=== PATIENT | male | born 1960 | race Two or more races ===

== ENCOUNTER 2020-08-22 11:22 | Outpatient (CLI) | payer MEDICARE ==
[2020-08-22 13:12] LABS: HEMOGLOBIN 13.7 g/dL (13.5-17.5); LYMPHOCYTES # (AUTO) 1.5 /CMM (0.8-4.8); LYMPHOCYTES % (AUTO) 25.9 % (20.0-44.0); NEUTROPHILS # (AUTO) 3.7 /CMM (1.8-8.9); WHITE BLOOD COUNT (AUTO) 5.8 K/uL (4.3-11.0)
[2020-08-22 13:19] LABS: BASOPHILS % (AUTO) 0.5 % (0.0-2.0); EOSINOPHILS % (AUTO) 0.3 % (0.0-6.0); HEMATOCRIT 40 % (39-51); MEAN CORPUSCULAR HGB CONC 34 g/dl (31.0-36.0); MEAN CORPUSCULAR VOLUME 95 fL (80-96); MONOCYTES # (AUTO) 0.5 /CMM (0.1-1.30); MONOCYTES % (AUTO) 9.3 % (2.0-12.0); PLATELET COUNT (AUTO) 344 /CMM (150-450); RED BLOOD CELL COUNT(AUTO) 4.25 MIL/uL (4.5-6.0)
[2020-08-22 13:26] LABS: BILIRUBIN,URINE NEGATIVE (NEGATIVE); COLOR,URINE YELLOW (YELLOW); LEUKOCYTE ESTERASE ,URINE TRACE (NEGATIVE); NITRITE, URINE NEGATIVE (NEGATIVE); PH,URINE 6.5 (5.0-8.0); PROTEIN,URINE NEGATIVE (NEGATIVE); UGLUCOSE NEGATIVE (NEGATIVE); UROBILINOGEN,URINE 0.2 EU/dL (0.2)
[2020-08-22 13:44] LABS: BACTERIA,URINE Many /HPF (None Seen); RBC,URINE 0-2 /HPF (0-2); SQUAMOUS EPITHELIAL CELL,UR Rare /HPF (None Seen)
[2020-08-22 13:58] LABS: URINE TOTAL PROTEIN 7.7 mg/dL (0-11.9)
[2020-08-22 14:20] LABS: C-REACTIVE PROTEIN 0.2 mg/dL (0.0-0.9); FREE T4 (FREE THYROXINE) 1.1 ng/dL (0.76-1.46); PROSTATE SPECIFIC ANTIGEN SCR 1.49 ng/mL (0.00-4.00); THYROID STIMULATING HORMONE 1.933 uIU/mL (0.358-3.74)
[2020-08-22 14:30] LABS: ALBUMIN 4.2 g/dL (3.4-5.0); BILIRUBIN,TOTAL 0.6 mg/dL (0.2-1.0); CALCIUM, SERUM 9.2 mg/dL (8.5-10.1); CREATININE 0.8 mg/dL (0.6-1.3); MAGNESIUM 2.2 mg/dL (1.8-2.4); TOTAL PROTEIN, SERUM 7.8 g/dL (6.4-8.2)
[2020-08-23 11:07] LABS: *ANA ANTI-CENTROMERE B AB <0.2 AI (0.0-0.9); *ANA ANTI-DNA(DS) AB, QN <1 IU/mL (0-9); *ANA ANTI-JO-1 <0.2 AI (0.0-0.9); *ANA ANTICHROMATIN ANTIBODY <0.2 AI (0.0-0.9); *ANA RNP ANTIBODIES 0.2 AI (0.0-0.9); *ANA SJOGREN'S ANTI-SS-A <0.2 AI (0.0-0.9); *ANA SJOGREN'S ANTI-SS-B <0.2 AI (0.0-0.9); *ANAANTI-SCLERODERMA-70 AB <0.2 AI (0.0-0.9); *ANASMITH AB 0.2 AI (0.0-0.9)
== END 2020-08-22 23:59 | disposition home or self-care (01) ==
LOC: MSC 11:22
PROVIDERS: ATTEND Internal Medicine
DX: G89.29 Other chronic pain (principal); M54.16 Radiculopathy, lumbar region; M25.552 Pain in left hip; R32 Unspecified urinary incontinence; F20.9 Schizophrenia, unspecified; I10 Essential (primary) hypertension; Z79.899 Other long term (current) drug therapy
CPT/HCPCS: 36415; 71046; 72170; 73503; 73562; 73590; 80053; 80061; 81001; 82043; 82306; 82570; 82607; 82728; 82746; 83036; 83540; 83735; 84100; 84153; 84155; 84439; 84443; 85025; 85652; 86140; 86225; 86235 ×8; 87086; G0463; 73502

== ENCOUNTER → 2020-09-05 | Outpatient (CLI) | payer MEDICARE | END | disposition home or self-care (01) | LOC: MSC 11:00 | PROVIDERS: ATTEND Internal Medicine | DX: G89.29 Other chronic pain (principal); M54.10 Radiculopathy, site unspecified; M25.552 Pain in left hip; R32 Unspecified urinary incontinence; F20.9 Schizophrenia, unspecified; I10 Essential (primary) hypertension; Z79.899 Other long term (current) drug therapy ==

== ENCOUNTER 2020-09-29 10:45 | Outpatient (CLI) | payer MEDICARE | END 2020-09-29 23:59 | disposition home or self-care (01) | LOC: MSC 10:45 | PROVIDERS: ATTEND Internal Medicine | DX: S93.401A Sprain of unspecified ligament of right ankle, initial encounter (principal); R32 Unspecified urinary incontinence; R05 Cough; G89.29 Other chronic pain; M54.9 Dorsalgia, unspecified; F20.9 Schizophrenia, unspecified; I10 Essential (primary) hypertension ==

== ENCOUNTER 2020-09-29 11:22 | Outpatient (CLI) | payer MEDICARE | END 2020-09-29 23:59 | disposition home or self-care (01) | LOC: WOU 11:22 | PROVIDERS: ATTEND Podiatrist Foot & Ankle Surgery | DX: R60.0 Localized edema (principal); M79.671 Pain in right foot; F17.200 Nicotine dependence, unspecified, uncomplicated | CPT/HCPCS: G0463 ==

== ENCOUNTER 2020-10-04 11:40 | Outpatient (CLI) | payer MEDICARE | END 2020-10-04 23:59 | disposition home or self-care (01) | LOC: RAD 11:40 | PROVIDERS: ATTEND Podiatrist Foot & Ankle Surgery | DX: S92.001A Unspecified fracture of right calcaneus, initial encounter for closed fracture (principal); S93.401A Sprain of unspecified ligament of right ankle, initial encounter; S90.01XA Contusion of right ankle, initial encounter; M20.41 Other hammer toe(s) (acquired), right foot; M77.31 Calcaneal spur, right foot; R60.0 Localized edema; X58.XXXA Exposure to other specified factors, initial encounter; Y93.89 Activity, other specified; Y92.89 Other specified places as the place of occurrence of the external cause; Y99.8 Other external cause status | CPT/HCPCS: 73600-TC; 73630-TC ==

== ENCOUNTER → 2020-10-10 | Outpatient (CLI) | payer MEDICARE | END | disposition home or self-care (01) | LOC: WOU 10:10 | PROVIDERS: ATTEND Podiatrist Foot & Ankle Surgery | DX: S92.014D Nondisplaced fracture of body of right calcaneus, subsequent encounter for fracture with routine healing (principal); X58.XXXD Exposure to other specified factors, subsequent encounter; R60.0 Localized edema; B35.1 Tinea unguium; L60.2 Onychogryphosis; M79.671 Pain in right foot | CPT/HCPCS: G0463 ==

== ENCOUNTER 2020-10-12 09:00 | Outpatient (CLI) | payer MEDICARE | END 2020-10-12 23:59 | disposition home or self-care (01) | LOC: MSC 09:00 | PROVIDERS: ATTEND Internal Medicine | DX: R05 Cough (principal); F17.200 Nicotine dependence, unspecified, uncomplicated; R32 Unspecified urinary incontinence; M79.606 Pain in leg, unspecified; M25.552 Pain in left hip; G89.29 Other chronic pain; M54.10 Radiculopathy, site unspecified; F20.9 Schizophrenia, unspecified; I10 Essential (primary) hypertension; Z79.899 Other long term (current) drug therapy ==

== ENCOUNTER 2020-10-13 12:13 | Outpatient (CLI) | payer MEDICARE, OTHER | END 2020-10-13 23:59 | disposition home or self-care (01) | LOC: RAD 12:13 | PROVIDERS: ATTEND Internal Medicine | DX: M47.27 Other spondylosis with radiculopathy, lumbosacral region (principal); M43.17 Spondylolisthesis, lumbosacral region; M48.07 Spinal stenosis, lumbosacral region; M25.78 Osteophyte, vertebrae | CPT/HCPCS: 72148-TC ==

== ENCOUNTER 2020-10-13 13:06 | Outpatient (CLI) | payer MEDICARE ==
[2020-10-13 14:45] LABS: BILIRUBIN,URINE NEGATIVE (NEGATIVE); COLOR,URINE YELLOW (YELLOW); LEUKOCYTE ESTERASE ,URINE NEGATIVE (NEGATIVE); NITRITE, URINE NEGATIVE (NEGATIVE); PH,URINE 5.5 (5.0-8.0); PROTEIN,URINE NEGATIVE (NEGATIVE); UGLUCOSE NEGATIVE (NEGATIVE); UROBILINOGEN,URINE 0.2 EU/dL (0.2)
== END 2020-10-13 23:59 | disposition home or self-care (01) ==
LOC: LAB 13:06
PROVIDERS: ATTEND Internal Medicine
DX: R32 Unspecified urinary incontinence (principal)
CPT/HCPCS: 36415; 84153-TC; 87086-TC

== ENCOUNTER 2020-10-19 11:00 | Outpatient (CLI) | payer MEDICARE | END 2020-10-19 23:59 | disposition home or self-care (01) | LOC: MSC 11:00 | PROVIDERS: ATTEND Internal Medicine | DX: R05 Cough (principal); F17.200 Nicotine dependence, unspecified, uncomplicated; G89.29 Other chronic pain; M54.10 Radiculopathy, site unspecified; R32 Unspecified urinary incontinence; M25.552 Pain in left hip; F20.9 Schizophrenia, unspecified; I10 Essential (primary) hypertension; Z79.899 Other long term (current) drug therapy ==

== ENCOUNTER 2020-10-24 10:32 | Outpatient (CLI) | payer MEDICARE | END 2020-10-24 23:59 | LOC: MSC 10:32 | PROVIDERS: ATTEND Anesthesiology | DX: M25.551 Pain in right hip (principal); M25.552 Pain in left hip; M79.604 Pain in right leg; R25.2 Cramp and spasm; Z79.891 Long term (current) use of opiate analgesic; Z79.1 Long term (current) use of non-steroidal anti-inflammatories (NSAID) ==

== ENCOUNTER → 2020-11-03 | Outpatient (CLI) | payer MEDICARE, OTHER | END | disposition home or self-care (01) | LOC: RAD 14:41 | PROVIDERS: ATTEND Podiatrist Foot & Ankle Surgery | DX: S92.001D Unspecified fracture of right calcaneus, subsequent encounter for fracture with routine healing (principal); M21.41 Flat foot [pes planus] (acquired), right foot; X58.XXXD Exposure to other specified factors, subsequent encounter | CPT/HCPCS: 73630-TC ==

== ENCOUNTER 2020-11-07 10:10 | Outpatient (CLI) | payer MEDICARE, OTHER | END 2020-11-07 23:59 | disposition home or self-care (01) | LOC: WOU 10:10 | PROVIDERS: ATTEND Podiatrist Foot & Ankle Surgery | DX: S92.014 Nondisplaced fracture of body of right calcaneus (principal); X58.XXXD Exposure to other specified factors, subsequent encounter; R60.0 Localized edema; M79.671 Pain in right foot; B35.1 Tinea unguium; L60.2 Onychogryphosis | CPT/HCPCS: G0463 ==

== ENCOUNTER 2020-12-05 09:50 | Outpatient (CLI) | payer MEDICARE, OTHER | END 2020-12-05 23:59 | disposition home or self-care (01) | LOC: WOU 09:50 | PROVIDERS: ATTEND Podiatrist Foot & Ankle Surgery | DX: S92.014D Nondisplaced fracture of body of right calcaneus, subsequent encounter for fracture with routine healing (principal); X58.XXXD Exposure to other specified factors, subsequent encounter; B35.1 Tinea unguium; L60.2 Onychogryphosis; R60.0 Localized edema; M79.671 Pain in right foot | CPT/HCPCS: 73630; G0463 ==

== ENCOUNTER 2021-01-04 11:06 | Outpatient (CLI) | payer MEDICARE, OTHER | END 2021-01-04 23:59 | disposition home or self-care (01) | LOC: RAD 11:06 | PROVIDERS: ATTEND Podiatrist Foot & Ankle Surgery | DX: S92.001D Unspecified fracture of right calcaneus, subsequent encounter for fracture with routine healing (principal); M21.41 Flat foot [pes planus] (acquired), right foot; X58.XXXD Exposure to other specified factors, subsequent encounter | CPT/HCPCS: 73630-TC ==

== ENCOUNTER 2021-01-10 14:10 | Outpatient (CLI) | payer MEDICARE, OTHER ==
[2021-01-10] MEDS ORDERED: CLOTRIMAZOLE 1% 15 GM TUBE TP ONE (14:36)
== END 2021-01-10 23:59 | disposition home or self-care (01) ==
LOC: WOU 14:10
PROVIDERS: ATTEND Podiatrist Foot & Ankle Surgery
DX: S92.014 Nondisplaced fracture of body of right calcaneus (principal); X58.XXXD Exposure to other specified factors, subsequent encounter; B35.1 Tinea unguium; L60.2 Onychogryphosis; R60.0 Localized edema; Z91.19 Patient's noncompliance with other medical treatment and regimen; F20.9 Schizophrenia, unspecified
CPT/HCPCS: G0463

== ENCOUNTER 2021-03-06 09:35 | Outpatient (CLI) | payer MEDICARE, OTHER ==
[2021-03-06 10:32] LABS: BASOPHILS % (AUTO) 0.3 % (0.0-2.0); EOSINOPHILS % (AUTO) 0.2 % (0.0-6.0); HEMATOCRIT 34 % (39-51); HEMOGLOBIN 11.7 g/dL (13.5-17.5); LYMPHOCYTES # (AUTO) 1.5 K/uL (0.8-4.8); LYMPHOCYTES % (AUTO) 27.4 % (20.0-44.0); MEAN CORPUSCULAR HGB CONC 35 g/dl (31.0-36.0); MEAN CORPUSCULAR VOLUME 95 fL (80-96); MONOCYTES # (AUTO) 0.4 K/uL (0.1-1.30); MONOCYTES % (AUTO) 7.5 % (2.0-12.0); NEUTROPHILS # (AUTO) 3.5 K/uL (1.8-8.9); NEUTROPHILS % (AUTO) 64.6 % (43.0-81.0); PLATELET COUNT (AUTO) 345 K/uL (150-450); RED BLOOD CELL COUNT(AUTO) 3.55 MIL/uL (4.5-6.0); WHITE BLOOD COUNT (AUTO) 5.4 K/uL (4.3-11.0)
[2021-03-06 10:46] LABS: C-REACTIVE PROTEIN 1.1 mg/dL (0.0-0.9)
[2021-03-06 10:51] LABS: ALBUMIN 3.7 g/dL (3.4-5.0); BILIRUBIN,TOTAL 0.4 mg/dL (0.2-1.0); CALCIUM, SERUM 8.7 mg/dL (8.5-10.1); POTASSIUM 4.3 mmol/L (3.5-5.1); TOTAL PROTEIN, SERUM 7.1 g/dL (6.4-8.2)
== END 2021-03-06 23:59 | disposition home or self-care (01) ==
LOC: MSC 09:35
PROVIDERS: ATTEND Internal Medicine
DX: H10.9 Unspecified conjunctivitis (principal); G89.29 Other chronic pain; M54.16 Radiculopathy, lumbar region; R05.9 Cough, unspecified; R32 Unspecified urinary incontinence; W19.XXXA Unspecified fall, initial encounter; M79.669 Pain in unspecified lower leg; M25.552 Pain in left hip; F20.9 Schizophrenia, unspecified; I10 Essential (primary) hypertension; Z79.899 Other long term (current) drug therapy
CPT/HCPCS: 36415; 80053; 83036; 85025; 85652; 86140; G0463

== ENCOUNTER 2021-03-07 13:15 | Outpatient (CLI) | payer MEDICARE, OTHER | END 2021-03-07 23:59 | disposition home or self-care (01) | LOC: WOU 13:15 | PROVIDERS: ATTEND Podiatrist Foot & Ankle Surgery | DX: S92.014 Nondisplaced fracture of body of right calcaneus (principal); X58.XXXD Exposure to other specified factors, subsequent encounter; R60.0 Localized edema; B35.1 Tinea unguium; L60.2 Onychogryphosis | CPT/HCPCS: 73600; 73630; G0463 ==

== ENCOUNTER → 2021-03-15 | Outpatient (CLI) | payer MEDICARE, OTHER | END | disposition home or self-care (01) | LOC: MSC 10:30 | PROVIDERS: ATTEND Internal Medicine | DX: R74.01 Elevation of levels of liver transaminase levels (principal); M79.673 Pain in unspecified foot; E87.1 Hypo-osmolality and hyponatremia; R05.9 Cough, unspecified; R32 Unspecified urinary incontinence; G89.29 Other chronic pain; M54.16 Radiculopathy, lumbar region; W19.XXXD Unspecified fall, subsequent encounter; M79.606 Pain in leg, unspecified; M25.552 Pain in left hip; F20.9 Schizophrenia, unspecified; I10 Essential (primary) hypertension; Z79.899 Other long term (current) drug therapy ==

== ENCOUNTER 2021-03-20 10:13 | Outpatient (CLI) | payer MEDICARE, OTHER | END 2021-03-20 23:59 | disposition home or self-care (01) | LOC: US 10:13 | PROVIDERS: ATTEND Internal Medicine | DX: K80.20 Calculus of gallbladder without cholecystitis without obstruction (principal); R74.01 Elevation of levels of liver transaminase levels | CPT/HCPCS: 76705-TC ==

== ENCOUNTER → 2021-03-20 | Outpatient (CLI) | payer MEDICARE, OTHER | LOC: MSC 11:00 | PROVIDERS: ATTEND Anesthesiology | DX: M25.551 Pain in right hip (principal); M25.552 Pain in left hip; M79.604 Pain in right leg; R25.2 Cramp and spasm; M54.50 Low back pain, unspecified; M62.830 Muscle spasm of back; G89.4 Chronic pain syndrome; Z79.891 Long term (current) use of opiate analgesic; Z79.1 Long term (current) use of non-steroidal anti-inflammatories (NSAID) ==

== ENCOUNTER 2021-06-12 11:20 | Outpatient (CLI) | payer MEDICARE, OTHER | END 2021-06-12 23:59 | disposition home or self-care (01) | LOC: MSC 11:20 | PROVIDERS: ATTEND Anesthesiology | DX: R25.2 Cramp and spasm (principal); M79.604 Pain in right leg; M25.551 Pain in right hip; G89.4 Chronic pain syndrome; M54.50 Low back pain, unspecified; Z79.891 Long term (current) use of opiate analgesic; Z79.1 Long term (current) use of non-steroidal anti-inflammatories (NSAID) ==

== ENCOUNTER 2021-06-14 11:45 | Outpatient (CLI) | payer MEDICARE, OTHER | END 2021-06-14 23:59 | disposition home or self-care (01) | LOC: MSC 11:45 | PROVIDERS: ATTEND Internal Medicine | DX: G89.29 Other chronic pain (principal); M54.16 Radiculopathy, lumbar region; R74.01 Elevation of levels of liver transaminase levels; M79.673 Pain in unspecified foot; E87.1 Hypo-osmolality and hyponatremia; R32 Unspecified urinary incontinence; W19.XXXD Unspecified fall, subsequent encounter; M79.606 Pain in leg, unspecified; M25.552 Pain in left hip; F20.9 Schizophrenia, unspecified; I10 Essential (primary) hypertension; Z79.899 Other long term (current) drug therapy ==

== ENCOUNTER 2021-07-10 14:30 | Outpatient (CLI) | payer MEDICARE, OTHER | END 2021-07-10 23:59 | disposition home or self-care (01) | LOC: MSC 14:30 | PROVIDERS: ATTEND Anesthesiology | DX: M25.552 Pain in left hip (principal); M25.551 Pain in right hip; R25.2 Cramp and spasm; M79.604 Pain in right leg; G89.4 Chronic pain syndrome; M54.50 Low back pain, unspecified; Z79.891 Long term (current) use of opiate analgesic; Z79.1 Long term (current) use of non-steroidal anti-inflammatories (NSAID) ==

== ENCOUNTER 2021-08-07 12:10 | Outpatient (CLI) | payer MEDICARE, OTHER | END 2021-08-07 23:59 | disposition home or self-care (01) | LOC: MSC 12:10 | PROVIDERS: ATTEND Anesthesiology | DX: M25.552 Pain in left hip (principal); M25.551 Pain in right hip; M54.50 Low back pain, unspecified; G89.4 Chronic pain syndrome; M79.604 Pain in right leg; R25.2 Cramp and spasm; Z79.891 Long term (current) use of opiate analgesic ==

== ENCOUNTER 2021-09-04 12:00 | Outpatient (CLI) | payer MEDICARE, OTHER | END 2021-09-04 23:59 | disposition home or self-care (01) | LOC: MSC 12:00 | PROVIDERS: ATTEND Anesthesiology | DX: G89.4 Chronic pain syndrome (principal); M25.552 Pain in left hip; M25.551 Pain in right hip; M79.604 Pain in right leg; R25.2 Cramp and spasm; M54.50 Low back pain, unspecified; Z79.891 Long term (current) use of opiate analgesic; Z79.1 Long term (current) use of non-steroidal anti-inflammatories (NSAID) ==

== ENCOUNTER 2021-10-04 11:39 | Outpatient (CLI) | payer MEDICARE, OTHER | END 2021-10-04 23:59 | disposition home or self-care (01) | LOC: MSC 11:39 | PROVIDERS: ATTEND Internal Medicine | DX: G89.29 Other chronic pain (principal); M54.10 Radiculopathy, site unspecified; M54.16 Radiculopathy, lumbar region; R74.01 Elevation of levels of liver transaminase levels; M79.673 Pain in unspecified foot; E87.1 Hypo-osmolality and hyponatremia; R32 Unspecified urinary incontinence; Z91.81 History of falling; M79.606 Pain in leg, unspecified; M25.552 Pain in left hip; F20.9 Schizophrenia, unspecified; I10 Essential (primary) hypertension ==

== ENCOUNTER 2021-10-09 12:00 | Outpatient (CLI) | payer MEDICARE, OTHER | END 2021-10-09 23:59 | disposition home or self-care (01) | LOC: WOU 12:00 | PROVIDERS: ATTEND Podiatrist Foot & Ankle Surgery | DX: S92.014 Nondisplaced fracture of body of right calcaneus (principal); X58.XXXD Exposure to other specified factors, subsequent encounter; M19.171 Post-traumatic osteoarthritis, right ankle and foot; L60.2 Onychogryphosis; R60.0 Localized edema; B35.1 Tinea unguium; M79.672 Pain in left foot; M79.671 Pain in right foot; F20.9 Schizophrenia, unspecified | CPT/HCPCS: G0463 ==

== ENCOUNTER 2021-10-09 12:23 | Outpatient (CLI) | payer MEDICARE, OTHER | END 2021-10-09 23:59 | disposition home or self-care (01) | LOC: MSC 12:23 | PROVIDERS: ATTEND Anesthesiology | DX: G89.4 Chronic pain syndrome (principal); M54.50 Low back pain, unspecified; M62.830 Muscle spasm of back; M25.551 Pain in right hip; M79.604 Pain in right leg; Z79.891 Long term (current) use of opiate analgesic; Z79.1 Long term (current) use of non-steroidal anti-inflammatories (NSAID) ==